=== PATIENT | female | born 1970 | race Two or more races ===

== ENCOUNTER 2018-04-07 05:48 | Emergency (ER) | payer BC ==
[~2018-04-07] VITALS: Ht 152.4 cm; Wt 68.0 kg
[2018-04-07 06:39] VITALS: BP 138/74
[2018-04-07] MEDS ORDERED: IBUPROFEN 800 MG TAB PO ONE (07:15)
== END 2018-04-07 07:31 | disposition home or self-care (01) ==
LOC: ER 05:48
DX: S16.1XXA Strain of muscle, fascia and tendon at neck level, initial encounter (principal); S39.012A Strain of muscle, fascia and tendon of lower back, initial encounter; V43.62XA Car passenger injured in collision with other type car in traffic accident, initial encounter; Y93.89 Activity, other specified; Y99.8 Other external cause status; Y92.410 Unspecified street and highway as the place of occurrence of the external cause
CPT/HCPCS: 72040; 72100

== ENCOUNTER 2023-07-04 23:54 | Emergency (ER) | payer BC, OTHER ==
[~2023-07-04] VITALS: Ht 157.5 cm; Wt 73.3 kg
[2023-07-05] MEDS: IBUPROFEN 600 MG TAB PO ONE (01:20)
[2023-07-05] MEDS ORDERED: CYCL-614 PO (03:41)
[2023-07-05] MEDS ORDERED: IBUP-1456 PO (03:41)
[2023-07-05 04:48] VITALS: BP 132/78; PULSE 67; RESP 18; TEMP 97.8
[2023-07-05 05:47] VITALS: O2SAT 98
== END 2023-07-05 06:00 | disposition home or self-care (01) ==
LOC: ER 23:54
DX: S16.1XXA Strain of muscle, fascia and tendon at neck level, initial encounter (principal); S70.01XA Contusion of right hip, initial encounter; S50.02XA Contusion of left elbow, initial encounter; W01.0XXA Fall on same level from slipping, tripping and stumbling without subsequent striking against object, initial encounter; Y93.89 Activity, other specified; Y92.89 Other specified places as the place of occurrence of the external cause; Y99.0 Civilian activity done for income or pay
CPT/HCPCS: 72125; 73080; 73502

== ENCOUNTER 2024-02-29 16:56 | Emergency (ER) | payer OTHER ==
[~2024-02-29] VITALS: Ht 165.1 cm; Wt 68.0 kg
[~2024-02-29 16:56] MED LIST: CYCL-614 PO; IBUP-1456 PO
[2024-02-29] MEDS: MORPHINE SULFATE INJ 2 MG/ml SYRG IM ONE (18:55)
[2024-02-29 18:56] VITALS: BP 153/68; PULSE 70; RESP 20; TEMP 98.4; O2SAT 97
--- NOTE | 2024-02-29 21:11 | DVH ---
EXAM: CT CT L KNEE WO CONTRAST INDICATION: swelling and pain EXAM DATE: 02/29/2024 08:38 PM COMPARISON: None TECHNIQUE: Multiple axial CT images of the left knee were obtained using bone algorithm. Axial and co nguyen reformatting was done. Bone and soft tissue windows were reviewed. Radiation Dose Information: CT Dose: CTDI volume is 7.75 mGy. Dose-length product is 205.44 mGy*cm Findings/Impression: There is no evidence of an acute fracture, dislocation, blastic, or lytic lesions. No radiopaque foreign bodies. Moderate to large joint effusion. Mild soft tissue edema.
[2024-02-29] MEDS ORDERED: LIDOCAINE 1% HCL (LOCAL ANESTH.) INJ 20ML MDV IJ ONE (21:30)
[2024-02-29] MEDS ORDERED: TRIAMCINOLONE 40MG/ML 1ML VIAL IX ONE (21:30)
--- NOTE | 2024-02-29 21:30 | ED.PDOC ---
Back pain HPI HPI Comments THIS IS A 53-YEAR-OLD FEMALE PRESENTS TO THE ED STATUS POST WORK INJURY TO LEFT KNEE. PATIENT STATES WHILE SHE WAS AT WORK ON 02/23/2024. 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 SHE STATES SINCE SHE HAS BEEN HAVING SEVERE PAIN 10/10 PRESSURE TYPE PAIN SHARP SHOOTING PAIN RADIATING UP TO LEFT GLUTE AND DOWN LEG. PATIENT STATES SHE WAS SEEN AT [facility] YESTERDAY HAD IMAGING DONE AND WAS GIVEN A BRACE AND CRUTCHES SHE STATES NO IMPROVEMENT IN PAIN. SHE DENIES NUMBNESS, WEAKNESS, FEVER, CHILLS OR NEW INJURY. Chief Complaint: Lower Extremity Time Seen by MD: 18:09 Primary Care Provider: UNKNOWN Reviewed Notes: Nurses Notes, Medications, Allergies Allergies: Coded Allergies: NO KNOWN ALLERGIES (Unverified , 04/07/18) Home Meds Active Scripts Ibuprofen (Ibuprofen) 800 Mg Tab, 1 TAB PO TID PRN, #30 TAB 0 Refills Prov:BERNARDA DACOSTA 07/05/23 Cyclobenzaprine HCl (Cyclobenzaprine Hydrochlo) 5 Mg Tab, 5 MG PO QHSP, #14 TAB 0 Refills Prov:BERNARDA DACOSTA 07/05/23 Information Source: Patient Mode of Arrival: Ambulatory Past Medical History PAST MEDICAL HISTORY: Denies Surgical History: Denies all surgeries CLINICAL TRAINER History: Denies all CLINICAL TRAINER Hx Family History Family History: Unknown Social History Smoker: Non-Smoker Alcohol: Denies ETOH Use Drugs: Denies Drug Use Lives In: Home Constitutional: denies: chills, diaphoresis, fatigue, fever, malaise, sweats, weakness, others EENTM: denies: blurred vision, double vision, ear bleeding, ear discharge, ear drainage, ear pain, ear ringing, eye pain, eye redness, hearing loss, mouth pain, mouth swelling, nasal discharge, nose bleeding, nose congestion, nose pain, photophobia, tearing, throat pain, throat swelling, voice changes, others Respiratory: denies: cough, hemoptysis, orthopnea, SOB at rest, shortness of breath, SOB with excertion, stridor, wheezing, others Cardiovascular: denies: chest pain, dizzy spells, diaphoresis, Dyspnea on exertion, edema, irregular heart beat, left arm pain, lightheadedness, palpitations, PND, syncope, others Gastrointestinal: denies: abdomen distended, abdominal pain, blood streaked bowels, constipated, diarrhea, dysphagia, difficulty swallowing, hematemesis, melena, nausea, poor appetite, poor fluid intake, rectal bleeding, rectal pain, vomiting, others Genitourinary: denies: abnormal vagina bleeding, burning, dyspareunia, dysuria, flank pain, frequency, hematuria, incontinence, pain, , vagina discharge, urgency, others Neurological: denies: dizziness, fainting, headache, left sided numbness, left sided weakness, numbness, paresthesia, pre-existing deficit, right sided numbness, right sided weakness, seizure, speech problems, tingling, tremors, weakness, others Musculoskeletal: reports: others (LEFT KNEE PAIN AND SWELLING); denies: back pain, gout, joint pain, joint swelling, muscle pain, muscle stiffness, neck pain Integumetry: denies: bruises, change in color, change in hair/nails, dryness, laceration, lesions, lumps, rash, wounds, others Allergic/Immunocompromised: denies: Difficulty Healing, Frequent Infections, Hives, Itching, others Hematologic/Lymphatic: denies: anemia, blood clots, easy bleeding, easy bruising, swollen glands, others Endocrine: denies: excessive hunger, excessive sweating, excessive thirst, excessive urination, flushing, intolerance to cold, intolerance to heat, unexplained weight gain, unexplained weight loss, others Psychiatric: denies: anxiety, bipolar disorder, depression, hopeless, panic disorder, schizophrenia, sleepless, suicidal, others Physical Exam General Appearance: No Apparent Distress, Normal HEENT: Pharynx Normal Neck: Full Range of Motion, Non-Tender Respiratory: Lungs Clear, No Respiratory Distress, Normal Breath Sounds Cardiovascular: No Murmur, Normal Peripheral Pulses, Regular Rate/Rhythm Breast Exam: Deferred Gastrointestinal: Non Tender, Soft Genitalia: Deferred Pelvic: Deferred Rectal: Deferred Extremities: Normal capillary refill, Normal inspection, Normal range of motion, Non-tender, No pedal edema Musculoskeletal : Location: Left Extremity Location: Knee (NEGATIVE VIRA'S NEGATIVE DRAWER TEST. NEGATIVE BALLOTTEMENT. MODERATE SWELLING NOTED AROUND THE KNEE. STRENGTH SENSORY AND MOTION INTACT POSITIVE PEDAL PULSE NO NOTED ABRASIONS LESIONS ECCHYMOSIS OR LACERATIONS.) Apperance: Normal Neurologic: Alert, fish packer II-XII nml as Tested, No Motor Deficits, Normal Affect, Normal Mood, No Sensory Deficits Cerebellar Function: Normal Reflexes: Normal Skin: Dry, Normal Color, Warm Lymphatic: No Adenopathy Was a procedure done? Was a procedure done?: Yes Sedation Sedation?: No Informed consent obtained: Yes Other Procedure Procedure LEFT KNEE INTRA ARTICULAR JOINT STEROID INJECTION Indication LEFT KNEE MODERATE TO LARGE JOINT EFFUSION AND SEVERE PAIN Anesthetic LIDOCAINE 1% 3 ML MIXED WITH KENALOG 40 MG Prep BETADINE X3 Success PATIENT REPORTS IMPROVEMENT IN PAIN AND FUNCTION. MINIMAL BLOOD LOSS PATIENT TOLERATED WELL Informed consent obtained: Yes Risks, benefits, and alternati: Yes Back Pain Differential Dx Differential Diagnosis: Fracture, Musculoskeletal Pain, Urinary Obstruction X-Ray, Labs, Meds, VS Vital Signs Date Time Temp Pulse Resp B/P (MAP) Pulse Ox O2 Delivery O2 Flow Rate FiO2 02/29/24 18:56 98.4 70 20 153/68 (96) 97 98.4 02/29/24 18:55 70 20 153/68 02/29/24 17:11 98.1 67 18 158/60 (92) 98 Current Medications Medications (Trade) Dose Ordered Sig/Betina Route Start Time Stop Time Status Last Admin Morphine Sulfate 1 mg ONCE ONCE IM 02/29/24 18:45 02/29/24 18:46 DC 02/29/24 18:55 X-Ray, Labs, Meds, VS Comment PATIENT WAS GIVEN 1 MG MORPHINE IM REPORTS IMPROVEMENT IN PAIN AND FUNCTION. SEE THE PROCEDURE NOTE FOR INTRA-ARTICULAR INJECTION. LEFT KNEE X-RAY SHOWS MODERATE TO LARGE JOINT EFFUSION WITHOUT ANY ACUTE FRACTURES OR OSSEOUS LESIONS. ADVISED PATIENT TO CONTINUE WITH THE BRACE AND CRUTCHES PATIENT GIVEN 3 DAYS OFF ADVISED TO FOLLOW UP AND RETURN TO OCCUPATIONAL HEALTH FOR CLEARANCE. ADVISED ON ER RETURN PRECAUTIONS. PATIENT INDICATED UNDERSTANDING AND AGREES WITH DISCHARGE PLAN OF CARE. Time of 1ST Reevaluation: 21:30 Reevaluation 1ST: Improved Patient Education/Counseling: Diagnosis, Treatment, Prognosis, Need For Follow Up Family Education/Counseling: Diagnosis, Treatment, Prognosis, Need For Follow Up Departure 1 Departure Time of Disposition: 21:30 Impression: Primary Impression: Effusion of knee joint, left Disposition: 01 HOME / SELF CARE / HOMELESS Condition: Stable Additional Instructions: FOLLOW UP WITH OCCUPATIONAL HEALTH DISCUSSED, CONSIDER MRI OF LEFT KNEE IF SYMPTOMS PERSIST. WORK NOTE PROVIDED FOR 3 DAYS. YOU WERE GIVEN KENALOG 40 MG KENALOG LEFT KNEE JOINT FOR LARGE JOINT EFFUSION. Discharged With: Significant Other Critical Care Note Critical Care Time?: No Stability Stability form required: SIMON Kaur Feb 29, 2024 21:30
== END 2024-02-29 22:55 | disposition home or self-care (01) ==
LOC: ER 16:56
DX: M25.462 Effusion, left knee (principal); R60.0 Localized edema
CPT/HCPCS: 20610; 73700; 96372; 99285; J2003; J2270; J3301